=== PATIENT | female | born 1960 | race Caucasian/White ===

== ENCOUNTER 2020-07-18 20:59 | Inpatient (IN) | payer OTHER ==
[~2020-07-18] VITALS: Ht 165.1 cm; Wt 89.8 kg
[~2020-07-18 20:59] MED LIST: OXYACE5T PO
[2020-07-18 21:53] LABS: BASOPHILS ABSOLUTE AUTO 0.05 K/mm3 (0.00-0.23); BASOPHILS PERCENT AUTO 0 % (0-2); EOSINOPHILS ABSOLUTE AUTO 0.01 K/mm3 (0.00-0.68); EOSINOPHILS PERCENT AUTO 0 % (0-6); Hematocrit 48.5 % (33.0-51.0); Hemoglobin 16.6 g/dL (11.5-16.0); IMMATURE GRAN ABSOLUTE AUTO 0.09 K/mm3 (0.00-0.10); IMMATURE GRAN PERCENT AUTO 1 % (0-1); LYMPHOCYTES ABSOLUTE AUTO 1.94 K/mm3 (0.84-5.20); LYMPHOCYTES PERCENT AUTO 11 % (21-46); MONOCYTES PERCENT AUTO 5 % (4-13); Mean Corpuscular HGB 29.5 pg (26.0-34.0); Mean Corpuscular HGB Conc 34.2 g/dL (31.5-36.5); Mean Corpuscular Volume 86 fL (80-100); NEUTROPHILS ABSOLUTE AUTO 14.96 K/mm3 (1.96-9.15); NEUTROPHILS PERCENT AUTO 84 % (41-73); Platelet Count 351 K/mm3 (150-400); RDW Coefficient Variation 13.2 % (11.7-14.2); RDW Standard Deviation 41.4 fL (35.1-46.3); Red Blood Cell Count 5.62 M/mm3 (3.80-5.20); White Blood Cell Count 17.85 K/mm3 (4.00-11.30)
[2020-07-18 23:18] LABS: Source, Urine Clean Catch
[2020-07-18 23:20] LABS: Blood, Urine 2+ (Neg); Glucose Qualitative, Urine Neg (Neg); Ketones, Urine 1+ (Neg); Leukocyte Esterase, Urine 3+ (Neg); Nitrite, Urine Neg (Neg); Protein, Urine 2+ (Neg); Urobilinogen, Urine 1+ (Normal)
[2020-07-18 23:22] LABS: Albumin, Blood 3.9 g/dL (3.4-5.0); Bilirubin, Total 0.9 mg/dL (0.1-1.0); Bun/Creatinine Ratio 17.6 (12.0-20.0); Calcium, Blood 9.6 mg/dL (8.5-10.1); Creatinine, Blood 1.25 mg/dL (0.40-1.00); Potassium, Blood 3.8 mmol/L (3.5-5.5); Total Protein, Blood 7.9 g/dL (6.4-8.2)
[2020-07-18 23:23] LABS: Appearance, Urine Hazy (Clear); Bilirubin, Urine 1+ (Neg); Color, Urine Yellow (P-Yellow)
[2020-07-18 23:29] LABS: Amorphous Light (0-Heavy); Bacteria Mod /hpf; Hyaline Casts 25-50 /lpf (0-2); Mucus Mod (0-Heavy); Squamous Epithelial Cells Few /hpf (Few); White Blood Cells, Urine TNTC /hpf (0-5)
[2020-07-19] MEDS ORDERED: LORA10ER PO (01:34)
[2020-07-19 01:56] LABS: SARS-Cov-2 (COVID-19) PCR, MMC NEGATIVE (NEGATIVE)
--- NOTE | 2020-07-19 03:13 | NUR ---
PT AGREEA TO STUDENT PARTICPATION IN CARE
--- NOTE | 2020-07-19 05:25 | NUR ---
SHIFT SUMMARY: SBO,PERIUMBILICAL HERNIA PT IS NPO SIPS AND CHIPS ONLY, A&OX4 INDEPENDENT WITH BRIGHT AFFECT FREQUENT SMILES SPEECH CONCRETE LOGICAL. PTS HERNIA WAS REDUCED IN ER AND DENIED PAIN T/O SHIFT. SMALL NODULE PRESENT WITH PALPATION TENDER BS ARE HYPO PT REPORTED LAST BM 3 DAYS AGO DENIES FLATUS, PHYSICAL ASSESSMENT AND HX OTHERWISE UNREMANRKABLE, OOB BRP, IV FLUIDS T/O SHIFT REASSESS LABS IN AM LACTIC ACID WAS ELEVATED, CALL LIGHT WITHIN REACH HOB @30.
--- NOTE | 2020-07-19 10:10 | NUR ---
PT TAKEN TO THE OR FOR HERNIA REPAIR, PT WAS A/OX4, APPEARED TO BE BREATHING EASILY ON RA, PT HAD SHOWERED AND VOIDED , PT WAS NPO
--- NOTE | 2020-07-19 17:46 | NUR ---
PT ARRIVED BACK TO ROOM 229 FROM PACU A/OX3, SLEEPY ON OXYGEN 3L/MIN VIA NC SPO2 @ 95% TITRATED O2 TO 2L/MIN AT THIS TIME, PT REPORTS SOME ABD DISCOMFORT, PT HAS A MELBA DRAIN MID ABD THAT IS CDI, PT HAS A ANNETTA DRAIN IN RIGHT LOWER QUAD DRAINING BLOOD TINGED FLUID, PTS IS AT THE BEDSIDE, VSS AT THIS TIME, ABD BINDER ON AND SECURE, CALL LIGHT IN REACH, WILL CONTINUE TO MONITOR AND ASSESS FOR CHANGES
--- NOTE | 2020-07-20 04:45 | NUR ---
SHIFT SUMMARY: SBO POD 1 PT IS A&OX4,POST OP DAY 1 W/ MIDLINE MELBA DRESSING IS 4X4 W/ CLEAR WINDOW C/D/I NO DRAINAGE , ANNETTA ON TO THE RLQ W/ CLEAR WINDOW DRESSING DRAINING SEROSANGEOUS FLUID, PT REPORTS PAIN IS TOLERABLE AND CONFINED TO THE MIDLINE AREA AND PAIN MEDICATION HAS BEEN EFECTIVE, PT AMBULATES 1P ASSIT W/BRP, LR@75 INF TO RIGHT 20G IN HAND 20G IN LEFT AC SALINE LOCKED, PT REPORTS FLATUS. PT SLEPT WELL T/O SHIFT CALL LIGHT WITHIN REACH
--- NOTE | 2020-07-20 09:07 | NUR ---
PT DOING WELL AT TIME OF ASSESSMENT, RATES ABD PAIN 2/10 AND STATES IT "ACHES MORE THAN HURTS", DENIES NEED FOR PAIN MEDICATION AT THIS TIME. MIDLINE INCISION WITH PICCO DRESSING C/D/I, DRESSING COMPRESSED. ANNETTA DRAIN WITH SMALL AMT SS FLUID AT THIS TIME. DENIES N/V, TOLERATING SMALL AMOUNTS CLEAR LIQUID DIET. REPORTS FLATUS. SBA TO BATHROOM, VOIDING WITHOUT DIFFICULTY. DISCUSSED WITH PT THE IMPORTANCE OF AMBULATING AND GETTING UP TO CHAIR THIS SHIFT, PT VERBALIZED UNDERSTANDING.
[2020-07-20] MEDS ORDERED: HYDR1TAB94 PO (17:28)
--- NOTE | 2020-07-20 17:50 | NUR ---
DISCHARGE PT GIVEN WRITTEN AND VERBAL DISCHARGE INSTRUCTIONS AND VERBALIZED UNDERSTANDING OF THESE INSTRUCTIONS, DEMONSTRATED ANNETTA DRAIN CARE. IV REMOVED, TOLERATED WELL. WHEELCHAIR TO CAR.
== END 2020-07-20 17:51 | disposition home or self-care (01) | DRG 355 ==
LOC: ER 20:59 → SURS 07-19 00:22
PROVIDERS: Emergency Medicine; Physician Assistant; ADMIT Surgery
PROC: 0WUF0JZ Supplement Abdominal Wall with Synthetic Substitute, Open Approach (ICD-10-PCS; principal; 2020-07-19 13:00)
DX: K43.6 Other and unspecified ventral hernia with obstruction, without gangrene (principal); K59.00 Constipation, unspecified; Z20.822 Contact with and (suspected) exposure to COVID-19
CPT/HCPCS: 36415; 74177; 80053; 81001; 83605; 83690; 85025; 87086; 87147; 93005; 93010; 96374; 99285-25; A9270; C1781; J0690; J1100; J1170; J1885; J2370; J2405; J2704; J3010; J7030; J7120; Q9967; U0004